=== PATIENT | female | born 1950 | race Caucasian/White ===

== ENCOUNTER 2018-01-16 09:52 | Day surgery (SDC) | payer MEDICARE, OTHER ==
[~2018-01-16] VITALS: Ht 167.6 cm; Wt 77.3 kg
[2018-01-16 10:16] VITALS: BP 138/47; PULSE 73; RESP 18; TEMP 97.6; O2SAT 97
[2018-01-16] MEDS ORDERED: OCUVCAP2 PO (10:20)
[2018-01-16] MEDS ORDERED: OMEGCAP PO (10:20)
[2018-01-16] MEDS ORDERED: LISI10TA3 PO (10:20)
[2018-01-16] MEDS ORDERED: ASPI-516 CHEW (10:20)
[2018-01-16] MEDS ORDERED: METF500T PO (10:20)
[2018-01-16] MEDS ORDERED: CYAN1TAB24 (10:20)
[2018-01-16] MEDS ORDERED: COQ150CA (10:20)
[2018-01-16] MEDS ORDERED: VITA400T18 (10:20)
[2018-01-16] MEDS ORDERED: TRIA37.53 (10:20)
[2018-01-16] MEDS ORDERED: SODIUM CHLOR 0.9% 1000 ML IV SCH (10:30)
[2018-01-16] MEDS ORDERED: MIDAZOLAM HCL 2 MG/2 ML VIAL ONE ×2 (12:10→13:09)
--- NOTE | 2018-01-16 13:28 | PD.RAD ---
Post CT Procedure Prog Note Pre Procedure Diagnosis: (1) Adnexal mass Post Procedure Diagnosis: (1) Adnexal mass Procedure Date: January 16, 2018 Supervising Radiologist: Cayden Avila Proceduralist/Assist: chuyita ramos Estimated blood loss: none Anesthesia: Conscious Sedation Plan of Activity Patient to Unit: ROP[facility] Patient Condition: Good See PACS Report for procedural detail/treatment Cayden Avila MD January 16, 2018 13:28
[2018-01-16 13:40] VITALS: BP 116/56; PULSE 65; RESP 18; O2SAT 93
[2018-01-16 13:55] VITALS: BP 106/57; PULSE 62; RESP 18; O2SAT 97
[2018-01-16 14:25] VITALS: BP 106/50; PULSE 59; RESP 18; O2SAT 96
[2018-01-16 14:55] VITALS: BP 112/43; PULSE 62; RESP 18; O2SAT 97
[2018-01-16 15:25] VITALS: BP 112/58; PULSE 62; RESP 20; O2SAT 97
--- NOTE | 2018-01-16 16:26 | RADRPT ---
EXAM DATE: 01/16/2018 2:26 PM EDT AGE/SEX: 67 years / Female INDICATIONS: Left pelvic mass. CLINICAL DATA: This is the patient's initial encounter. Patient reports that signs and symptoms have been present for 1 day and indicates a pain score of 0/10. MEDICAL/SURGICAL HISTORY: Diabetes. Hypertension. None. COMPARISON: No prior [facility] exams available for comparison. BIOPSY SITE: Left pelvic MEDICATION(S): 3 mg midazolam (Versed) IV 150 mcg fentanyl (Sublimaze) IV DEVICE(S): 20 gauge BARD biopsy needle 19 gauge BARD introducer needle . . PROCEDURE: CT guided Left pelvic biopsy Prior to the procedure informed consent was obtained. Any appropriate prior imaging studies were rev iewed. Using automated exposure control and adjustment of the mA and/or kV according to patient size, radiat ion dose was kept as low as reasonably achievable to obtain optimal diagnostic quality images. DICOM format image data is available electronically for review and comparison. The site was prepped in a sterile fashion. Full sterile technique was used, including cap, mask, delano rile gloves and gown and a large sterile sheet. Hand hygiene and 2% chlorhexidine and/or betadine/al cohol prep was utilized per protocol for cutaneous antisepsis. The skin and subcutaneous tissues wer e infiltrated with local anesthetic solution. With CT guidance the previously identified target was localized. Biopsy was performed using the presc ribed needle as above. Adequate hemostasis was obtained with compression at the puncture site. Follow-up CT scan reveals no hemorrhage. The patient tolerated the procedure well and there were no complications. The patient was returned to the Radiology Outpatient Unit in stable condition. FINDINGS: The left ovarian lesion was targeted under CT guidance from a posterior approach. Multiple samples ob tained.. CONCLUSION: 1. Uncomplicated CT guided biopsy of left ovarian lesion. Electronically signed by: Cayden Avila MD 01/16/2018 4:25 PM EDT
== END 2018-01-16 15:29 | disposition home or self-care (01) ==
LOC: HRAD 09:52 → HRIP 09:56 → HRAD 15:29
PROVIDERS: ATTEND Obstetrics & Gynecology Gynecologic Oncology
DX: R19.04 Left lower quadrant abdominal swelling, mass and lump (principal); Z87.42 Personal history of other diseases of the female genital tract; K55.9 Vascular disorder of intestine, unspecified; K21.9 Gastro-esophageal reflux disease without esophagitis; I10 Essential (primary) hypertension; E78.00 Pure hypercholesterolemia, unspecified; E53.8 Deficiency of other specified B group vitamins; E55.9 Vitamin D deficiency, unspecified; G62.9 Polyneuropathy, unspecified; M06.9 Rheumatoid arthritis, unspecified; K76.0 Fatty (change of) liver, not elsewhere classified
CPT/HCPCS: 49180; 77012; 88305; 99152; J2250; J3010; 88304